=== PATIENT | male | born 1975 | race Caucasian/White ===

== ENCOUNTER 2016-09-03 18:01 | Emergency (ER) | payer MEDICAID ==
[~2016-09-03] VITALS: Ht 188 cm; Wt 86.2 kg
[2016-09-03 18:06] VITALS: BP 136/83
== END 2016-09-03 19:42 | disposition home or self-care (01) ==
LOC: ER 18:03
DX: S62.306A Unspecified fracture of fifth metacarpal bone, right hand, initial encounter for closed fracture (principal); W22.01XA Walked into wall, initial encounter; Y93.89 Activity, other specified; Y92.89 Other specified places as the place of occurrence of the external cause; Y99.8 Other external cause status
CPT/HCPCS: 29125; 73130; 99284; A4606; Z7610